=== PATIENT | male | born 1940 | race Caucasian/White ===

== ENCOUNTER → 2023-11-14 | Day surgery (SDC) | payer OTHER ==
[~2023-11-14] MED LIST: BENADRYL25 M1 PO; FENTANYL CITRATE/PF 100MCG/2 ML INJ ONE; FINASTERIDE5 MG PO; FLOMAX0.4 MG PO; IOPAMIDOL 610MG/1ML 300 MG/ML VIAL IV ONE; LASIX40 MG PO; LIDOCAINE HCL 2% LOCAL INJ 5 ML SDV VIAL INJ ONE; METOPROLOL SUCC50 MG PO; ONDANSETRON HCL INJ 2MG/ML 2ML 2 MG/ML VIAL ONE; PANTOPRAZOLE SO40 MG PO; PROPOFOL IV EMULSION 10 MG/ML 20 ML VIAL ONE; SEVOFLURANE INHAL SOLN 250 ML PEN BTL ONE; ULTRAM 50MG50 MG PO; VIAGRA50 MG PO; VITAMIN D31250 MCG PEG
[2023-11-14] MEDS: LACTATED RINGER'S 1,000 ML ONE (09:04)
[2023-11-14] MEDS: GENTAMICIN 80MG/NS 100 ML 200 ML IV ONE (09:04)
[2023-11-14] MEDS: PIPERACILLIN/TAZOBACTAM 3.375 GM VIAL ONE (09:04)
[2023-11-14 09:24] LABS: BASOPHILS # (AUTO) 0.1 (0.0-0.1); BASOPHILS % 0.9 % (0.0-1.0); EOSINOPHILS # (AUTO) 0.1 (0.0-0.4); EOSINOPHILS % 1.7 % (0.0-6.0); HEMATOCRIT 32.4 % (38.2-49.6); HEMOGLOBIN 10.8 g/dL (14.0-18.0); LYMPHOCYTES # (AUTO) 1.9 (1.0-3.2); LYMPHOCYTES % 31.8 % (18.0-39.1); MEAN CORPUSCULAR HEMOGLOBIN 30.6 pg (28-32); MEAN CORPUSCULAR HGB CONC 33.3 g/dL (31-35); MEAN CORPUSCULAR VOLUME 91.8 fL (81-99); MONOCYTES # (AUTO) 0.5 (0.2-0.8); MONOCYTES % 8.8 % (4.4-11.3); NEUTROPHILS # (AUTO) 3.3 (2.1-6.9); NEUTROPHILS % 56.5 % (38.7-80.0); PLATELET COUNT 184 x10e3/uL (140-360); RED BLOOD COUNT 3.53 x10e6/uL (4.3-5.7); RED CELL DISTRIBUTION WIDTH 13.4 % (11.7-14.4); WHITE BLOOD COUNT 5.82 x10e3/uL (4.8-10.8)
[2023-11-14 09:59] LABS: ANION GAP 15.1 mmol/L (8-16); CALCIUM 8.7 mg/dL (8.4-10.2); CREATININE, SERUM 1.73 mg/dL (0.72-1.25); POTASSIUM 4.1 mmol/L (3.5-5.1)
[2023-11-14] MEDS: PHENAZOPYRIDINE HCL 100 MG TAB ONE (12:55)
[2023-11-14 13:35] VITALS: BP 156/78; PULSE 80; RESP 16; O2SAT 97
== END | disposition home or self-care (01) ==
LOC: OR 08:18
PROVIDERS: ATTEND Urology
DX: C66.1 Malignant neoplasm of right ureter (principal); C65.1 Malignant neoplasm of right renal pelvis; C67.9 Malignant neoplasm of bladder, unspecified; N39.0 Urinary tract infection, site not specified; N20.0 Calculus of kidney; N13.30 Unspecified hydronephrosis; N40.1 Benign prostatic hyperplasia with lower urinary tract symptoms; N13.8 Other obstructive and reflux uropathy; R39.14 Feeling of incomplete bladder emptying; R39.16 Straining to void; R39.15 Urgency of urination; R39.12 Poor urinary stream; R35.0 Frequency of micturition; Z46.6 Encounter for fitting and adjustment of urinary device; N47.1 Phimosis; I25.2 Old myocardial infarction; I11.0 Hypertensive heart disease with heart failure; I50.9 Heart failure, unspecified; Z79.899 Other long term (current) drug therapy
CPT/HCPCS: 36415; 52332; 52354; 74420; 80048; 84550; 85025; 87086; 88112; 88305; 93005; C1758; C1769; C2617; J1580; J2001; J2405; J2543; J2704; J3010; J7121; Q9967

== ENCOUNTER 2024-01-26 09:50 | Inpatient (IN) | payer OTHER ==
[2024-01-26] VITALS (20 sets, daily range): BP systolic 106–144; BP diastolic 56–94; PULSE 66–85; RESP 15–25; TEMP 97.3–97.5; O2SAT 99–100
[~2024-01-26] VITALS: Ht 175.3 cm; Wt 83.0 kg
[~2024-01-26 09:50] MED LIST changes: -FENTANYL CITRATE/PF 100MCG/2 ML INJ ONE; -IOPAMIDOL 610MG/1ML 300 MG/ML VIAL IV ONE; -LIDOCAINE HCL 2% LOCAL INJ 5 ML SDV VIAL INJ ONE; -ONDANSETRON HCL INJ 2MG/ML 2ML 2 MG/ML VIAL ONE; -PROPOFOL IV EMULSION 10 MG/ML 20 ML VIAL ONE; -SEVOFLURANE INHAL SOLN 250 ML PEN BTL ONE
[2024-01-26 11:10] LABS: BASOPHILS % 0.4 % (0.0-1.0); EOSINOPHILS % 0.7 % (0.0-6.0); HEMATOCRIT 35.4 % (38.2-49.6); HEMOGLOBIN 11.3 g/dL (14.0-18.0); LYMPHOCYTES # (AUTO) 1.7 (1.0-3.2); LYMPHOCYTES % 31.1 % (18.0-39.1); MEAN CORPUSCULAR HGB CONC 31.9 g/dL (31-35); MONOCYTES # (AUTO) 0.5 (0.2-0.8); MONOCYTES % 9.1 % (4.4-11.3); NEUTROPHILS # (AUTO) 3.1 (2.1-6.9); NEUTROPHILS % 58.3 % (38.7-80.0); PLATELET COUNT 126 x10e3/uL (140-360); RED BLOOD COUNT 3.65 x10e6/uL (4.3-5.7); RED CELL DISTRIBUTION WIDTH 13.4 % (11.7-14.4); WHITE BLOOD COUNT 5.37 x10e3/uL (4.8-10.8)
[2024-01-26] MEDS: CEFAZOLIN SODIUM 2 GM ONE (11:10)
[2024-01-26] MEDS: LACTATED RINGER'S 1,000 ML ONE (11:10)
[2024-01-26 11:35] LABS: ALBUMIN 3.7 g/dL (3.5-5.0); ALBUMIN/GLOBULIN RATIO 0.9 (0.8-2.0); BILIRUBIN,TOTAL 0.5 mg/dL (0.2-1.2); CALCIUM 8.7 mg/dL (8.4-10.2); CREATININE, SERUM 1.72 mg/dL (0.72-1.25); TOTAL PROTEIN 7.8 g/dL (6.5-8.1)
[2024-01-26 11:49] LABS: ANION GAP 16.1 mmol/L (8-16)
[2024-01-26] MEDS ORDERED: GENTAMICIN SULFATE 40 MG/ML 2 ML VIAL ONE (12:07)
[2024-01-26] MEDS ORDERED: MANNITOL 25% 12.5GM/50ML 0 ML ONE (12:07)
[2024-01-26] MEDS ORDERED: VECURONIUM BROMIDE FOR INJ 20 MG VIAL ONE (12:44)
[2024-01-26] MEDS ORDERED: ROCURONIUM BROMIDE 10 MG/ML 5ML VIAL IV ONE (12:44)
[2024-01-26] MEDS ORDERED: WATER STERILE 10 ML VIAL ONE (12:44)
[2024-01-26] MEDS ORDERED: FAMOTIDINE 20 MG/2 ML VIAL IV ONE (12:44)
[2024-01-26] MEDS ORDERED: SEVOFLURANE INHAL SOLN 250 ML PEN BTL ONE (12:44)
[2024-01-26] MEDS ORDERED: ACETAMINOPHEN 1000 MG/100 ML IV ONE (12:44)
[2024-01-26] MEDS ORDERED: METOCLOPRAMIDE HCL 10 MG/2ML VIAL ONE (12:44)
[2024-01-26] MEDS ORDERED: DEXAMETHASONE SOD PHOS INJ 4 MG/ML SDV ONE (12:44)
[2024-01-26] MEDS ORDERED: LIDOCAINE HCL 2% LOCAL INJ 5 ML SDV VIAL INJ ONE (12:44)
[2024-01-26] MEDS ORDERED: ETOMIDATE 2 MG/ML 10 ML INJ IV ONE (12:44)
[2024-01-26] MEDS ORDERED: SUCCINYLCHOLINE CHLORIDE 20 MG/ML 10ML VIAL ONE (12:44)
[2024-01-26] MEDS ORDERED: ONDANSETRON HCL INJ 2MG/ML 2ML 2 MG/ML VIAL ONE (12:44)
[2024-01-26] MEDS ORDERED: MORPHINE SULFATE/PF 1 MG/1 ML 10ML VIAL ONE (13:21)
[2024-01-26] MEDS ORDERED: FENTANYL CITRATE/PF 100MCG/2 ML INJ ONE (14:21)
[2024-01-26] MEDS ORDERED: ACETAMINOPHEN 1000 MG/100 ML IV PRN (17:30)
[2024-01-26] MEDS ORDERED: NALOXONE HCL INJ 0.4 MG/ML AMP IV PRN (17:30)
[2024-01-26] MEDS ORDERED: ONDANSETRON HCL INJ 2MG/ML 2ML 2 MG/ML VIAL IV PRN (17:30)
[2024-01-26] MEDS ORDERED: SUGAMMADEX SODIUM 200 MG/2 ML VIAL IV ONE (17:39)
[2024-01-26] MEDS: MORPHINE SULFATE 1 MG/ML 30ML PCA IV PRN (17:42)
[2024-01-26 18:24] LABS: BASOPHILS % 0.3 % (0.0-1.0); EOSINOPHILS % 0.1 % (0.0-6.0); HEMATOCRIT 31.8 % (38.2-49.6); HEMOGLOBIN 10.3 g/dL (14.0-18.0); LYMPHOCYTES # (AUTO) 2.2 (1.0-3.2); LYMPHOCYTES % 25.5 % (18.0-39.1); MEAN CORPUSCULAR HGB CONC 32.4 g/dL (31-35); MEAN CORPUSCULAR VOLUME 95.8 fL (81-99); MONOCYTES # (AUTO) 0.3 (0.2-0.8); MONOCYTES % 3.1 % (4.4-11.3); NEUTROPHILS # (AUTO) 6.1 (2.1-6.9); NEUTROPHILS % 70.8 % (38.7-80.0); PLATELET COUNT 111 x10e3/uL (140-360); RED BLOOD COUNT 3.32 x10e6/uL (4.3-5.7); RED CELL DISTRIBUTION WIDTH 13.4 % (11.7-14.4); WHITE BLOOD COUNT 8.58 x10e3/uL (4.8-10.8)
[2024-01-26 18:40] LABS: ANION GAP 16.7 mmol/L (8-16); CREATININE, SERUM 1.44 mg/dL (0.72-1.25); POTASSIUM 3.7 mmol/L (3.5-5.1)
[2024-01-26] MEDS: SODIUM CHLORIDE 0.9% 1000ML 1,000 ML IV SCH (20:21)
[2024-01-26] MEDS: MUPIROCIN 2% OINT 22 GM TUBE TOP SCH (21:43)
[2024-01-27] VITALS (57 sets, daily range): BP systolic 71–149; BP diastolic 35–113; PULSE 57–110; RESP 15–27; TEMP 98.2–101; O2SAT 82–100
[2024-01-27] MEDS: SODIUM CHLORIDE 0.9% 250ML IRRIG IR SCH (00:37)
[2024-01-27 06:13] LABS: BASOPHILS # (AUTO) 0.1 (0.0-0.1); BASOPHILS % 0.6 % (0.0-1.0); HEMATOCRIT 26.9 % (38.2-49.6); HEMOGLOBIN 8.4 g/dL (14.0-18.0); LYMPHOCYTES # (AUTO) 1.1 (1.0-3.2); LYMPHOCYTES % 12.8 % (18.0-39.1); MEAN CORPUSCULAR HEMOGLOBIN 31.3 pg (28-32); MEAN CORPUSCULAR HGB CONC 31.2 g/dL (31-35); MEAN CORPUSCULAR VOLUME 100.4 fL (81-99); MONOCYTES # (AUTO) 0.7 (0.2-0.8); MONOCYTES % 8.2 % (4.4-11.3); NEUTROPHILS # (AUTO) 6.6 (2.1-6.9); NEUTROPHILS % 78.2 % (38.7-80.0); PLATELET COUNT 73 x10e3/uL (140-360); RED BLOOD COUNT 2.68 x10e6/uL (4.3-5.7); RED CELL DISTRIBUTION WIDTH 13.5 % (11.7-14.4); WHITE BLOOD COUNT 8.38 x10e3/uL (4.8-10.8)
[2024-01-27 06:48] LABS: ANION GAP 15.4 mmol/L (8-16); CALCIUM 8.1 mg/dL (8.4-10.2); CREATININE, SERUM 1.75 mg/dL (0.72-1.25); POTASSIUM 4.4 mmol/L (3.5-5.1)
[2024-01-27] MEDS ORDERED: ONDANSETRON HCL INJ 2MG/ML 2ML 2 MG/ML VIAL IV PRN (08:45)
[2024-01-27] MEDS: HETASTARCH 6%/NACL INJ 500 ML IV ONE (17:55)
[2024-01-27] MEDS: ALBUMIN 25% 25GM 100ML 0.25 GM/ML BTL IV ONE (20:52)
[2024-01-27] MEDS: NOREPINEPHRINE 8 MG/D5W 250 ML 250 ML IV SCH (22:00)
[2024-01-27] MEDS: ALBUMIN 25% 25GM 100ML 0.25 GM/ML BTL IV STA (22:02)
[2024-01-27 22:20] LABS: BASOPHILS # (AUTO) 0.1 (0.0-0.1); BASOPHILS % 0.4 % (0.0-1.0); EOSINOPHILS # (AUTO) 0.1 (0.0-0.4); EOSINOPHILS % 0.8 % (0.0-6.0); LYMPHOCYTES # (AUTO) 1.6 (1.0-3.2); LYMPHOCYTES % 12.3 % (18.0-39.1); MEAN CORPUSCULAR HEMOGLOBIN 31.9 pg (28-32); MEAN CORPUSCULAR HGB CONC 32.2 g/dL (31-35); MEAN CORPUSCULAR VOLUME 99.1 fL (81-99); MONOCYTES # (AUTO) 1.2 (0.2-0.8); MONOCYTES % 9.7 % (4.4-11.3); NEUTROPHILS # (AUTO) 9.7 (2.1-6.9); NEUTROPHILS % 76.2 % (38.7-80.0); PLATELET COUNT 122 x10e3/uL (140-360); RED BLOOD COUNT 2.16 x10e6/uL (4.3-5.7); RED CELL DISTRIBUTION WIDTH 13.9 % (11.7-14.4)
[2024-01-27 22:24] LABS: WHITE BLOOD COUNT 12.72 x10e3/uL (4.8-10.8)
[2024-01-27 22:25] LABS: HEMATOCRIT 21.4 % (38.2-49.6); HEMOGLOBIN 6.9 g/dL (14.0-18.0)
[2024-01-27] MEDS: SODIUM CHLORIDE 0.9% 250ML 250 ML IV ONE (23:32)
[2024-01-28] VITALS (90 sets, daily range): BP systolic 64–157; BP diastolic 34–101; PULSE 52–130; RESP 12–29; TEMP 97.3–98.6; O2SAT 81–100
[2024-01-28] MEDS: FUROSEMIDE INJ 10 MG/ML 2 ML VIAL IV PRN ×2 (02:30→19:01)
[2024-01-28] MEDS: ACETAMINOPHEN 1000 MG/100 ML IV PRN (05:57)
[2024-01-28] MEDS: HETASTARCH 6%/NACL INJ 500 ML IV ONE (06:00)
[2024-01-28] MEDS: HETASTARCH 6%/NACL INJ 500 ML IV STA (06:22)
[2024-01-28 07:51] LABS: BASOPHILS % 0.2 % (0.0-1.0); EOSINOPHILS # (AUTO) 0.2 (0.0-0.4); EOSINOPHILS % 1.6 % (0.0-6.0); HEMATOCRIT 22.4 % (38.2-49.6); HEMOGLOBIN 7.3 g/dL (14.0-18.0); LYMPHOCYTES # (AUTO) 1.1 (1.0-3.2); LYMPHOCYTES % 11.4 % (18.0-39.1); MEAN CORPUSCULAR HEMOGLOBIN 30.8 pg (28-32); MEAN CORPUSCULAR HGB CONC 32.6 g/dL (31-35); MONOCYTES # (AUTO) 0.8 (0.2-0.8); MONOCYTES % 8.2 % (4.4-11.3); NEUTROPHILS # (AUTO) 7.3 (2.1-6.9); NEUTROPHILS % 77.4 % (38.7-80.0); PLATELET COUNT 107 x10e3/uL (140-360); RED BLOOD COUNT 2.37 x10e6/uL (4.3-5.7); RED CELL DISTRIBUTION WIDTH 15.6 % (11.7-14.4)
[2024-01-28 07:53] LABS: MEAN CORPUSCULAR VOLUME 94.5 fL (81-99)
[2024-01-28 08:18] LABS: ANION GAP 13.1 mmol/L (8-16); CALCIUM 7.3 mg/dL (8.4-10.2); CREATININE, SERUM 2.73 mg/dL (0.72-1.25); POTASSIUM 4.1 mmol/L (3.5-5.1)
[2024-01-28] MEDS: ALBUMIN 25% 25GM 100ML 0.25 GM/ML BTL IV SCH (11:39)
[2024-01-28] MEDS: SODIUM BICARBONATE 8.4% VIAL 150 ML in DEXTROSE 5% 1,000 ML IV SCH (11:39)
[2024-01-28 12:58] LABS: BILIRUBIN,URINE MODERATE (NEGATIVE); CLARITY,URINE CLOUDY (CLEAR); COLOR,URINE YELLOW (YELLOW); GLUCOSE, URINE NEGATIVE (NEGATIVE); KETONES,URINE 1+ (NEGATIVE); LEUKOCYTE ESTERASE ,URINE TRACE (NEGATIVE); NITRITE,URINE POSITIVE (NEGATIVE); PH,URINE 5.5 (5 - 7); PROTEIN,URINE DIPSTICK >=300 (NEGATIVE); URINE UROBILINOGEN 1 mg/dL (0.2 - 1)
[2024-01-28 12:59] LABS: BACTERIA,URINE MODERATE /HPF; EPITHELIAL CELLS,URINE FEW /LPF; RBC,URINE >50 /HPF (0-5); WBC,URINE (MAN) >50 /HPF (0-5)
[2024-01-28 13:43] LABS: CREATININE,URINE RANDOM 140.75 mg/dL (63-166); SODIUM,URINE 70 mmol/L
[2024-01-28] MEDS: SODIUM CHLORIDE 0.9% 250ML 250 ML IV ONE (17:57)
[2024-01-29] VITALS (90 sets, daily range): BP systolic 80–143; BP diastolic 30–125; PULSE 67–143; RESP 14–29; TEMP 97.6–98.6; O2SAT 79–100
[2024-01-29 00:53] LABS: BASOPHILS % 0.3 % (0.0-1.0); EOSINOPHILS # (AUTO) 0.2 (0.0-0.4); EOSINOPHILS % 2.1 % (0.0-6.0); HEMATOCRIT 28.2 % (38.2-49.6); HEMOGLOBIN 9.4 g/dL (14.0-18.0); LYMPHOCYTES # (AUTO) 1.4 (1.0-3.2); LYMPHOCYTES % 12.1 % (18.0-39.1); MEAN CORPUSCULAR HEMOGLOBIN 30.8 pg (28-32); MEAN CORPUSCULAR HGB CONC 33.3 g/dL (31-35); MEAN CORPUSCULAR VOLUME 92.5 fL (81-99); MONOCYTES # (AUTO) 0.7 (0.2-0.8); MONOCYTES % 5.9 % (4.4-11.3); NEUTROPHILS % 78.7 % (38.7-80.0); PLATELET COUNT 110 x10e3/uL (140-360); RED BLOOD COUNT 3.05 x10e6/uL (4.3-5.7); RED CELL DISTRIBUTION WIDTH 16.7 % (11.7-14.4); WHITE BLOOD COUNT 11.37 x10e3/uL (4.8-10.8)
[2024-01-29 01:12] LABS: ALBUMIN 3.1 g/dL (3.5-5.0); ALBUMIN/GLOBULIN RATIO 1.3 (0.8-2.0); ALKALINE PHOSPHATASE 61 IU/L (40-150); ANION GAP 15.9 mmol/L (8-16); BILIRUBIN,TOTAL 1.4 mg/dL (0.2-1.2); BLOOD UREA NITROGEN 39 mg/dL (7-26); BUN/CREATININE RATIO 13 (6-25); CALCIUM 7.3 mg/dL (8.4-10.2); CARBON DIOXIDE 18 mmol/L (22-29); CHLORIDE 110 mmol/L (98-107); CREATININE, SERUM 2.89 mg/dL (0.72-1.25); EST GLOMERULAR FILTRATION RATE 21 ML/MIN (>=60); GLUCOSE 113 mg/dL (74-118); MAGNESIUM 1.5 MG/DL (1.3-2.1); POTASSIUM 3.9 mmol/L (3.5-5.1); SODIUM 140 mmol/L (136-145); TOTAL PROTEIN 5.4 g/dL (6.5-8.1)
[2024-01-29 01:13] LABS: ALANINE AMINOTRANSFERASE < 6 IU/L (0-55)
[2024-01-29] MEDS: FUROSEMIDE INJ 10 MG/ML 4 ML VIAL IV ONE ×2 (02:00→08:01)
[2024-01-29] MEDS: DEXMEDETOMIDINE 400MCG/NS100ML 100 ML IV PRN (02:20)
[2024-01-29] MEDS: SODIUM BICARBONATE 8.4% VIAL 150 ML in DEXTROSE 5% 1,000 ML IV SCH (02:41)
[2024-01-29] MEDS ORDERED: DEXTROSE 5% 1,000 ML IV ONE (02:41)
[2024-01-29 03:14] LABS: ABG HCO3 23 mmol/L (22-26); ABG PCO2 48 mmHg (35-45); ABG PH 7.28 (7.35-7.45); ABG PO2 243 mmHg (80-105)
[2024-01-29 03:15] LABS: ABG TCO2 24
[2024-01-29] MEDS: SODIUM BICARBONATE 8.4% SYRING 150 ML ONE (03:25)
[2024-01-29] MEDS: MAGNESIUM SULFATE 2GM/50ML 50 ML IV ONE (03:59)
[2024-01-29 06:19] LABS: BASOPHILS % 0.1 % (0.0-1.0); EOSINOPHILS # (AUTO) 0.1 (0.0-0.4); EOSINOPHILS % 1.3 % (0.0-6.0); HEMATOCRIT 30.8 % (38.2-49.6); HEMOGLOBIN 9.7 g/dL (14.0-18.0); LYMPHOCYTES # (AUTO) 0.8 (1.0-3.2); LYMPHOCYTES % 10.3 % (18.0-39.1); MEAN CORPUSCULAR HEMOGLOBIN 29.8 pg (28-32); MEAN CORPUSCULAR HGB CONC 31.5 g/dL (31-35); MEAN CORPUSCULAR VOLUME 94.5 fL (81-99); MONOCYTES # (AUTO) 0.4 (0.2-0.8); MONOCYTES % 4.9 % (4.4-11.3); NEUTROPHILS # (AUTO) 6.1 (2.1-6.9); NEUTROPHILS % 82.2 % (38.7-80.0); PLATELET COUNT 109 x10e3/uL (140-360); RED BLOOD COUNT 3.26 x10e6/uL (4.3-5.7); RED CELL DISTRIBUTION WIDTH 16.7 % (11.7-14.4); WHITE BLOOD COUNT 7.41 x10e3/uL (4.8-10.8)
[2024-01-29 06:56] LABS: ANION GAP 14.6 mmol/L (8-16); CALCIUM 7.7 mg/dL (8.4-10.2); CREATININE, SERUM 2.84 mg/dL (0.72-1.25); POTASSIUM 3.6 mmol/L (3.5-5.1)
[2024-01-29 07:04] LABS: ABG HCO3 24 mmol/L (22-26); ABG PCO2 47 mmHg (35-45); ABG PH 7.31 (7.35-7.45); ABG PO2 186 mmHg (80-105); ABG TCO2 25
[2024-01-29] MEDS: FUROSEMIDE INJ 100 MG in SODIUM CHLORIDE 0.9% 90 ML IV SCH (08:06)
[2024-01-30] VITALS (70 sets, daily range): BP systolic 89–175; BP diastolic 46–95; PULSE 64–128; RESP 14–32; TEMP 97.5–98.4; O2SAT 96–100
[2024-01-30 06:23] LABS: BASOPHILS % 0.3 % (0.0-1.0); EOSINOPHILS # (AUTO) 0.3 (0.0-0.4); EOSINOPHILS % 2.5 % (0.0-6.0); HEMATOCRIT 30.3 % (38.2-49.6); HEMOGLOBIN 9.6 g/dL (14.0-18.0); LYMPHOCYTES # (AUTO) 1.1 (1.0-3.2); LYMPHOCYTES % 10.8 % (18.0-39.1); MEAN CORPUSCULAR HGB CONC 31.7 g/dL (31-35); MEAN CORPUSCULAR VOLUME 94.7 fL (81-99); MONOCYTES # (AUTO) 0.6 (0.2-0.8); MONOCYTES % 6.1 % (4.4-11.3); NEUTROPHILS % 79.9 % (38.7-80.0); PLATELET COUNT 131 x10e3/uL (140-360); RED CELL DISTRIBUTION WIDTH 16.3 % (11.7-14.4); WHITE BLOOD COUNT 9.98 x10e3/uL (4.8-10.8)
[2024-01-30 06:41] LABS: ANION GAP 17.3 mmol/L (8-16); CALCIUM 8.2 mg/dL (8.4-10.2); CREATININE, SERUM 2.87 mg/dL (0.72-1.25)
[2024-01-30 06:52] LABS: POTASSIUM 3.3 mmol/L (3.5-5.1)
[2024-01-30] MEDS: METOCLOPRAMIDE HCL 10 MG/2ML VIAL IV SCH (10:16)
[2024-01-30] MEDS: POTASSIUM CHLORIDE 20MEQ/100ML 100 ML IV ONE (10:16)
[2024-01-30] MEDS: FUROSEMIDE INJ 10 MG/ML 4 ML VIAL IV ONE (10:16)
[2024-01-30] MEDS: FUROSEMIDE INJ 100 MG in SODIUM CHLORIDE 0.9% 90 ML IV SCH (14:53)
[2024-01-30] MEDS: BUMETANIDE 10 MG in SODIUM CHLORIDE 0.9% 60 ML IV SCH (15:42)
[2024-01-30] MEDS ORDERED: ALBUMIN 25% 25GM 100ML 0.25 GM/ML BTL IV SCH (17:45)
[2024-01-30] MEDS: ALBUMIN 25% 25GM 100ML 100 ML IV SCH (17:51)
[2024-01-30] MEDS: BISACODYL 10 MG SUPP PR ONE (19:55)
[2024-01-31] VITALS (53 sets, daily range): BP systolic 98–131; BP diastolic 46–67; PULSE 63–89; RESP 15–37; TEMP 97.5–98.9; O2SAT 79–100
[2024-01-31 06:02] LABS: BASOPHILS % 0.2 % (0.0-1.0); EOSINOPHILS # (AUTO) 0.2 (0.0-0.4); EOSINOPHILS % 2.3 % (0.0-6.0); HEMATOCRIT 28.3 % (38.2-49.6); HEMOGLOBIN 8.7 g/dL (14.0-18.0); LYMPHOCYTES # (AUTO) 0.7 (1.0-3.2); LYMPHOCYTES % 8.9 % (18.0-39.1); MEAN CORPUSCULAR HGB CONC 30.7 g/dL (31-35); MEAN CORPUSCULAR VOLUME 97.6 fL (81-99); MONOCYTES # (AUTO) 0.6 (0.2-0.8); MONOCYTES % 6.9 % (4.4-11.3); NEUTROPHILS # (AUTO) 6.7 (2.1-6.9); NEUTROPHILS % 80.6 % (38.7-80.0); PLATELET COUNT 113 x10e3/uL (140-360); RED CELL DISTRIBUTION WIDTH 16.2 % (11.7-14.4); WHITE BLOOD COUNT 8.28 x10e3/uL (4.8-10.8)
[2024-01-31 07:40] LABS: ALBUMIN 3.1 g/dL (3.5-5.0); ALBUMIN/GLOBULIN RATIO 1.1 (0.8-2.0); ALKALINE PHOSPHATASE 61 IU/L (40-150); ANION GAP 21.1 mmol/L (8-16); BILIRUBIN,TOTAL 1.5 mg/dL (0.2-1.2); BLOOD UREA NITROGEN 53 mg/dL (7-26); BUN/CREATININE RATIO 20 (6-25); CALCIUM 8.3 mg/dL (8.4-10.2); CARBON DIOXIDE 17 mmol/L (22-29); CHLORIDE 112 mmol/L (98-107); CREATININE, SERUM 2.69 mg/dL (0.72-1.25); EST GLOMERULAR FILTRATION RATE 23 ML/MIN (>=60); GLUCOSE 80 mg/dL (74-118); SODIUM 147 mmol/L (136-145)
[2024-01-31 07:41] LABS: ALANINE AMINOTRANSFERASE < 6 IU/L (0-55)
[2024-01-31 07:42] LABS: POTASSIUM 3.1 mmol/L (3.5-5.1)
[2024-01-31] MEDS: POTASSIUM CHLORIDE 20MEQ/100ML 100 ML IV ONE (09:23)
[2024-01-31] MEDS: BISACODYL 10 MG SUPP PR ONE (10:22)
[2024-01-31] MEDS: DIPHENHYDRAMINE HCL INJ 50 MG/ML VIAL IM PRN (12:16)
[2024-02-01] VITALS (29 sets, daily range): BP systolic 98–140; BP diastolic 48–75; PULSE 46–117; RESP 17–30; TEMP 97.9–102; O2SAT 87–100
[2024-02-01 07:02] LABS: ALBUMIN 2.8 g/dL (3.5-5.0); ALKALINE PHOSPHATASE 68 IU/L (40-150); ANION GAP 20.2 mmol/L (8-16); BILIRUBIN,TOTAL 1.4 mg/dL (0.2-1.2); BLOOD UREA NITROGEN 62 mg/dL (7-26); BUN/CREATININE RATIO 23 (6-25); CARBON DIOXIDE 20 mmol/L (22-29); CHLORIDE 114 mmol/L (98-107); CREATININE, SERUM 2.74 mg/dL (0.72-1.25); EST GLOMERULAR FILTRATION RATE 23 ML/MIN (>=60); GLUCOSE 76 mg/dL (74-118); SODIUM 151 mmol/L (136-145); TOTAL PROTEIN 5.7 g/dL (6.5-8.1)
[2024-02-01 07:08] LABS: ALANINE AMINOTRANSFERASE < 6 IU/L (0-55); POTASSIUM 3.2 mmol/L (3.5-5.1)
[2024-02-01] MEDS: POTASSIUM CHLORIDE IN D5W 1,000 ML IV ONE (11:31)
[2024-02-01] MEDS: POTASSIUM CHL 40 MEQ in DEXTROSE 5% 1,000 ML IV SCH (16:41)
[2024-02-01] MEDS: Morphine 4mg INJECTION 4 MG/ML INJ IV PRN (19:39)
[2024-02-02] VITALS (19 sets, daily range): BP systolic 110–131; BP diastolic 53–78; PULSE 85–108; RESP 14–22; TEMP 97–98.9; O2SAT 95–100
[2024-02-02 06:44] LABS: BASOPHILS % 0.1 % (0.0-1.0); EOSINOPHILS # (AUTO) 0.3 (0.0-0.4); EOSINOPHILS % 3.8 % (0.0-6.0); HEMATOCRIT 29.2 % (38.2-49.6); HEMOGLOBIN 9.5 g/dL (14.0-18.0); LYMPHOCYTES # (AUTO) 1.4 (1.0-3.2); MEAN CORPUSCULAR HEMOGLOBIN 30.5 pg (28-32); MEAN CORPUSCULAR HGB CONC 32.5 g/dL (31-35); MEAN CORPUSCULAR VOLUME 93.9 fL (81-99); MONOCYTES # (AUTO) 0.7 (0.2-0.8); MONOCYTES % 8.1 % (4.4-11.3); NEUTROPHILS # (AUTO) 5.9 (2.1-6.9); NEUTROPHILS % 69.2 % (38.7-80.0); PLATELET COUNT 98 x10e3/uL (140-360); RED BLOOD COUNT 3.11 x10e6/uL (4.3-5.7); RED CELL DISTRIBUTION WIDTH 18.2 % (11.7-14.4); WHITE BLOOD COUNT 8.49 x10e3/uL (4.8-10.8)
[2024-02-02 07:15] LABS: ANION GAP 14.4 mmol/L (8-16); CALCIUM 8.6 mg/dL (8.4-10.2); CREATININE, SERUM 2.69 mg/dL (0.72-1.25)
[2024-02-02 07:18] LABS: POTASSIUM 3.4 mmol/L (3.5-5.1)
[2024-02-02 08:04] LABS: MAGNESIUM 1.8 MG/DL (1.3-2.1); PHOSPHORUS 1.9 MG/DL (2.3-4.7)
[2024-02-02] MEDS: POTASSIUM CHL 40 MEQ in DEXTROSE 5% 1,000 ML IV SCH ×2 (10:51→17:06)
[2024-02-02] MEDS: FUROSEMIDE INJ 10 MG/ML 2 ML VIAL IV SCH (14:27)
[2024-02-02] MEDS ORDERED: POTASSIUM CHLORIDE 40 MEQ in DEXTROSE 5% 1,000 ML IV SCH (16:15)
[2024-02-02] MEDS: SENNA-S TABLET PO SCH (17:09)
[2024-02-03] VITALS (36 sets, daily range): BP systolic 117–143; BP diastolic 52–103; PULSE 80–108; RESP 14–22; TEMP 98–98.7; O2SAT 94–100
[2024-02-03 05:05] LABS: ALBUMIN 2.5 g/dL (3.5-5.0); ALBUMIN/GLOBULIN RATIO 0.7 (0.8-2.0); ALKALINE PHOSPHATASE 71 IU/L (40-150); ANION GAP 16.3 mmol/L (8-16); BILIRUBIN,TOTAL 1.5 mg/dL (0.2-1.2); BLOOD UREA NITROGEN 56 mg/dL (7-26); BUN/CREATININE RATIO 27 (6-25); CALCIUM 8.1 mg/dL (8.4-10.2); CARBON DIOXIDE 20 mmol/L (22-29); CHLORIDE 110 mmol/L (98-107); CREATININE, SERUM 2.07 mg/dL (0.72-1.25); EST GLOMERULAR FILTRATION RATE 32 ML/MIN (>=60); GLUCOSE 339 mg/dL (74-118); MAGNESIUM 1.7 MG/DL (1.3-2.1); SODIUM 141 mmol/L (136-145); URIC ACID 11.5 mg/dL (4.8-8.0)
[2024-02-03 05:16] LABS: ALANINE AMINOTRANSFERASE < 6 IU/L (0-55)
[2024-02-03 05:19] LABS: POTASSIUM 5.3 mmol/L (3.5-5.1)
[2024-02-03] MEDS: CALCIUM GLUC 1 G/50 ML NACL 50 ML IV ONE (17:40)
[2024-02-03] MEDS: SODIUM BICARBONATE 650 MG TAB PO SCH (17:40)
[2024-02-04] VITALS (14 sets, daily range): BP systolic 112–151; BP diastolic 52–84; PULSE 80–101; RESP 17–19; TEMP 97.3–98.3; O2SAT 89–100
[2024-02-04 06:14] LABS: BASOPHILS % 0.2 % (0.0-1.0); EOSINOPHILS # (AUTO) 0.4 (0.0-0.4); EOSINOPHILS % 2.9 % (0.0-6.0); HEMATOCRIT 31.5 % (38.2-49.6); HEMOGLOBIN 9.5 g/dL (14.0-18.0); LYMPHOCYTES # (AUTO) 1.4 (1.0-3.2); LYMPHOCYTES % 11.5 % (18.0-39.1); MEAN CORPUSCULAR HEMOGLOBIN 29.4 pg (28-32); MEAN CORPUSCULAR HGB CONC 30.2 g/dL (31-35); MEAN CORPUSCULAR VOLUME 97.5 fL (81-99); MONOCYTES # (AUTO) 0.5 (0.2-0.8); NEUTROPHILS % 80.4 % (38.7-80.0); PLATELET COUNT 197 x10e3/uL (140-360); RED BLOOD COUNT 3.23 x10e6/uL (4.3-5.7); RED CELL DISTRIBUTION WIDTH 16.5 % (11.7-14.4); WHITE BLOOD COUNT 12.46 x10e3/uL (4.8-10.8)
[2024-02-04 07:00] LABS: ALBUMIN 2.6 g/dL (3.5-5.0); ALBUMIN/GLOBULIN RATIO 0.7 (0.8-2.0); ALKALINE PHOSPHATASE 130 IU/L (40-150); ANION GAP 15.9 mmol/L (8-16); BILIRUBIN,TOTAL 1.9 mg/dL (0.2-1.2); BLOOD UREA NITROGEN 55 mg/dL (7-26); BUN/CREATININE RATIO 29 (6-25); CALCIUM 8.6 mg/dL (8.4-10.2); CARBON DIOXIDE 26 mmol/L (22-29); CHLORIDE 112 mmol/L (98-107); CREATININE, SERUM 1.88 mg/dL (0.72-1.25); EST GLOMERULAR FILTRATION RATE 35 ML/MIN (>=60); GLUCOSE 101 mg/dL (74-118); SODIUM 151 mmol/L (136-145); TOTAL PROTEIN 6.2 g/dL (6.5-8.1)
[2024-02-04 07:25] LABS: ALANINE AMINOTRANSFERASE < 6 IU/L (0-55)
[2024-02-04 07:28] LABS: POTASSIUM 2.9 mmol/L (3.5-5.1)
[2024-02-04] MEDS: FUROSEMIDE INJ 10 MG/ML 4 ML VIAL IV SCH (10:30)
[2024-02-04] MEDS: POTASSIUM CHLORIDE 20MEQ/100ML 200 ML IV ONE (10:31)
[2024-02-04] MEDS: POLYETHYLENE GLYCOL 3350 17 GM PACK PO SCH (10:31)
[2024-02-04] MEDS: DOCUSATE SODIUM LIQD 100 MG/10 ML UDC NG SCH (10:31)
[2024-02-04] MEDS: HEPARIN SOD (PORCINE) 5,000 UNIT/ML VIAL SC SCH (20:41)
[2024-02-05] VITALS (10 sets, daily range): BP systolic 123–141; BP diastolic 53–72; PULSE 75–93; RESP 17–18; TEMP 97–98.3; O2SAT 93–98
[2024-02-05] MEDS: HYDROCODONE/APAP 7.5MG-325MG 1 EA TAB PO PRN (03:29)
[2024-02-05 05:43] LABS: BASOPHILS % 0.2 % (0.0-1.0); EOSINOPHILS # (AUTO) 0.3 (0.0-0.4); EOSINOPHILS % 2.2 % (0.0-6.0); HEMATOCRIT 30.2 % (38.2-49.6); HEMOGLOBIN 9.2 g/dL (14.0-18.0); LYMPHOCYTES # (AUTO) 1.6 (1.0-3.2); LYMPHOCYTES % 12.7 % (18.0-39.1); MEAN CORPUSCULAR HEMOGLOBIN 29.5 pg (28-32); MEAN CORPUSCULAR HGB CONC 30.5 g/dL (31-35); MEAN CORPUSCULAR VOLUME 96.8 fL (81-99); MONOCYTES # (AUTO) 0.6 (0.2-0.8); MONOCYTES % 4.3 % (4.4-11.3); NEUTROPHILS # (AUTO) 10.3 (2.1-6.9); NEUTROPHILS % 79.8 % (38.7-80.0); PLATELET COUNT 207 x10e3/uL (140-360); RED BLOOD COUNT 3.12 x10e6/uL (4.3-5.7); RED CELL DISTRIBUTION WIDTH 16.5 % (11.7-14.4); WHITE BLOOD COUNT 12.96 x10e3/uL (4.8-10.8)
[2024-02-05 06:45] LABS: CALCIUM 8.8 mg/dL (8.4-10.2); CREATININE, SERUM 1.63 mg/dL (0.72-1.25)
[2024-02-05] MEDS ORDERED: ONDANSETRON HCL 4 MG ORAL DISINTEGRATING TAB PO PRN (16:15)
[2024-02-05] MEDS: POTASSIUM CHLORIDE 20MEQ/100ML 100 ML IV SCH (18:53)
[2024-02-06] VITALS (8 sets, daily range): BP systolic 116–150; BP diastolic 44–69; PULSE 81–93; RESP 18–21; TEMP 97.7–98.2; O2SAT 94–99
[2024-02-06 07:47] LABS: ANION GAP 13.1 mmol/L (8-16); CALCIUM 8.4 mg/dL (8.4-10.2); CREATININE, SERUM 1.35 mg/dL (0.72-1.25)
[2024-02-06 07:49] LABS: POTASSIUM 3.1 mmol/L (3.5-5.1)
[2024-02-06] MEDS: POTASSIUM CHLORIDE 10MEQ EA PO ONE (09:18)
[2024-02-06] MEDS ORDERED: POTASSIUM CHLORIDE 20MEQ/100ML 100 ML IV SCH (18:30)
[2024-02-06] MEDS: POTASSIUM CHLORIDE 20MEQ/100ML 100 ML IV SCH (20:47)
[2024-02-07] VITALS (12 sets, daily range): BP systolic 122–132; BP diastolic 57–68; PULSE 74–90; RESP 17–20; TEMP 97.2–100.2; O2SAT 94–99
[2024-02-07] MEDS: FUROSEMIDE 40 MG TAB PO SCH ×2 (05:53→09:00)
[2024-02-07 08:47] LABS: ANION GAP 14.7 mmol/L (8-16); CALCIUM 8.5 mg/dL (8.4-10.2); CREATININE, SERUM 1.31 mg/dL (0.72-1.25); POTASSIUM 3.7 mmol/L (3.5-5.1)
[2024-02-07] MEDS: POTASSIUM CHLORIDE 20 MEQ TAB CR PO SCH (10:17)
[2024-02-08] VITALS (11 sets, daily range): BP systolic 113–134; BP diastolic 52–61; PULSE 83–100; RESP 16–21; TEMP 97.1–99.1; O2SAT 95–99
[2024-02-09] VITALS (12 sets, daily range): BP systolic 112–136; BP diastolic 50–62; PULSE 65–105; RESP 16–21; TEMP 97.6–100.3; O2SAT 93–98
[2024-02-09 08:04] LABS: BASOPHILS % 0.2 % (0.0-1.0); EOSINOPHILS # (AUTO) 0.2 (0.0-0.4); HEMATOCRIT 27.6 % (38.2-49.6); HEMOGLOBIN 8.7 g/dL (14.0-18.0); LYMPHOCYTES # (AUTO) 1.4 (1.0-3.2); LYMPHOCYTES % 13.8 % (18.0-39.1); MEAN CORPUSCULAR HEMOGLOBIN 30.3 pg (28-32); MEAN CORPUSCULAR HGB CONC 31.5 g/dL (31-35); MEAN CORPUSCULAR VOLUME 96.2 fL (81-99); MONOCYTES # (AUTO) 0.8 (0.2-0.8); MONOCYTES % 7.8 % (4.4-11.3); NEUTROPHILS # (AUTO) 7.6 (2.1-6.9); NEUTROPHILS % 75.4 % (38.7-80.0); PLATELET COUNT 243 x10e3/uL (140-360); RED BLOOD COUNT 2.87 x10e6/uL (4.3-5.7); RED CELL DISTRIBUTION WIDTH 16.8 % (11.7-14.4); WHITE BLOOD COUNT 10.07 x10e3/uL (4.8-10.8)
[2024-02-09 08:24] LABS: ANION GAP 13.3 mmol/L (8-16); CALCIUM 8.1 mg/dL (8.4-10.2); CREATININE, SERUM 1.4 mg/dL (0.72-1.25); POTASSIUM 3.3 mmol/L (3.5-5.1)
[2024-02-09] MEDS: BALSAM PERU/CASTOR OIL 60 GM OINT...G. TP SCH (14:50)
[2024-02-09] MEDS: Vancomycin IV 1 GM in SODIUM CHLORIDE 0.9% 250ML 250 ML IV SCH (15:32)
[2024-02-09] MEDS: MEROPENEM 1 GM in SODIUM CHLORIDE 0.9% 100 ML IV SCH (15:33)
[2024-02-09] MEDS: ACETAMINOPHEN 325 MG TAB PO PRN (21:56)
[2024-02-10] VITALS (10 sets, daily range): BP systolic 106–126; BP diastolic 48–64; PULSE 72–112; RESP 14–22; TEMP 98.1–99.3; O2SAT 93–99
[2024-02-10 07:03] LABS: ANION GAP 15.5 mmol/L (8-16); CALCIUM 8.1 mg/dL (8.4-10.2); CREATININE, SERUM 1.4 mg/dL (0.72-1.25); POTASSIUM 3.5 mmol/L (3.5-5.1)
[2024-02-10] MEDS: FUROSEMIDE 40 MG TAB PO SCH (09:33)
[2024-02-10] MEDS: ALLOPURINOL 100 MG TAB PO ONE (16:52)
[2024-02-10] MEDS: COLCHICINE 0.6 MG TAB PO ONE ×2 (16:52→17:37)
[2024-02-10] MEDS: TEMAZEPAM 15 MG CAP PO PRN (21:53)
[2024-02-11] VITALS (10 sets, daily range): BP systolic 107–120; BP diastolic 54–78; PULSE 74–87; RESP 16–18; TEMP 97.5–99.1; O2SAT 94–98
[2024-02-11 06:38] LABS: BASOPHILS % 0.2 % (0.0-1.0); EOSINOPHILS # (AUTO) 0.1 (0.0-0.4); EOSINOPHILS % 1.2 % (0.0-6.0); HEMATOCRIT 27.8 % (38.2-49.6); HEMOGLOBIN 8.5 g/dL (14.0-18.0); LYMPHOCYTES # (AUTO) 1.6 (1.0-3.2); LYMPHOCYTES % 18.3 % (18.0-39.1); MEAN CORPUSCULAR HEMOGLOBIN 29.6 pg (28-32); MEAN CORPUSCULAR HGB CONC 30.6 g/dL (31-35); MEAN CORPUSCULAR VOLUME 96.9 fL (81-99); MONOCYTES # (AUTO) 0.7 (0.2-0.8); MONOCYTES % 8.6 % (4.4-11.3); NEUTROPHILS % 71.3 % (38.7-80.0); PLATELET COUNT 281 x10e3/uL (140-360); RED BLOOD COUNT 2.87 x10e6/uL (4.3-5.7); RED CELL DISTRIBUTION WIDTH 16.7 % (11.7-14.4); WHITE BLOOD COUNT 8.46 x10e3/uL (4.8-10.8)
[2024-02-11 06:59] LABS: ANION GAP 13.3 mmol/L (8-16); CREATININE, SERUM 1.36 mg/dL (0.72-1.25)
[2024-02-11 07:09] LABS: POTASSIUM 3.3 mmol/L (3.5-5.1)
[2024-02-11] MEDS: ALLOPURINOL 100 MG TAB PO SCH (08:19)
[2024-02-12] VITALS (9 sets, daily range): BP systolic 105–130; BP diastolic 56–85; PULSE 73–85; RESP 18; TEMP 97.9–98.6; O2SAT 94–100
[2024-02-13] VITALS (7 sets, daily range): BP systolic 113–136; BP diastolic 56–63; PULSE 77–88; RESP 18; TEMP 97.6–99.3; O2SAT 95–100
[2024-02-13 06:16] LABS: ANION GAP 14.5 mmol/L (8-16); CREATININE, SERUM 1.23 mg/dL (0.72-1.25); POTASSIUM 3.5 mmol/L (3.5-5.1)
[2024-02-13] MEDS: IRON SUCROSE 100 MG in SODIUM CHLORIDE 0.9% 100 ML IV SCH (09:42)
[2024-02-13] MEDS: ALTEPLASE RECOMBINANT 2 MG/2 ML VIAL IV PRN (16:20)
[2024-02-14] VITALS (13 sets, daily range): BP systolic 119–147; BP diastolic 49–68; PULSE 78–88; RESP 16–20; TEMP 97.4–98.5; O2SAT 95–100
[2024-02-14] MEDS ORDERED: IOPAMIDOL 370 MG/ML 100 ML INFUS..BTL INJ ONE (11:08)
[2024-02-14] MEDS: Vancomycin IV 1 GM in SODIUM CHLORIDE 0.9% 250ML 250 ML IV SCH (16:57)
[2024-02-14] MEDS: HYDROCODONE/APAP 7.5MG-325MG 1 EA TAB PO PRN (20:14)
[2024-02-15] VITALS (8 sets, daily range): BP systolic 120–139; BP diastolic 52–95; PULSE 70–93; RESP 14–21; TEMP 97.8–98.2; O2SAT 93–98
[2024-02-15 06:28] LABS: BASOPHILS % 0.7 % (0.0-1.0); EOSINOPHILS # (AUTO) 0.2 (0.0-0.4); EOSINOPHILS % 3.3 % (0.0-6.0); HEMOGLOBIN 8.6 g/dL (14.0-18.0); LYMPHOCYTES # (AUTO) 1.1 (1.0-3.2); LYMPHOCYTES % 19.4 % (18.0-39.1); MEAN CORPUSCULAR HEMOGLOBIN 30.6 pg (28-32); MEAN CORPUSCULAR HGB CONC 31.9 g/dL (31-35); MEAN CORPUSCULAR VOLUME 96.1 fL (81-99); MONOCYTES # (AUTO) 0.5 (0.2-0.8); MONOCYTES % 8.2 % (4.4-11.3); NEUTROPHILS # (AUTO) 3.7 (2.1-6.9); PLATELET COUNT 258 x10e3/uL (140-360); RED BLOOD COUNT 2.81 x10e6/uL (4.3-5.7); RED CELL DISTRIBUTION WIDTH 15.9 % (11.7-14.4); WHITE BLOOD COUNT 5.47 x10e3/uL (4.8-10.8)
[2024-02-15 06:55] LABS: ANION GAP 13.6 mmol/L (8-16); CALCIUM 8.2 mg/dL (8.4-10.2); CREATININE, SERUM 1.08 mg/dL (0.72-1.25); POTASSIUM 3.6 mmol/L (3.5-5.1)
[2024-02-15 07:09] LABS: MAGNESIUM 1.5 MG/DL (1.3-2.1); PHOSPHORUS 3.1 MG/DL (2.3-4.7)
[2024-02-15] MEDS ORDERED: CEFEPIME HCL 1 GM VIAL ONE (08:15)
[2024-02-15] MEDS ORDERED: MAGNESIUM SULFATE 2GM/50ML IV ONE (11:15)
[2024-02-15] MEDS: MAGNESIUM SULFATE 2GM/50ML 50 ML IV ONE (13:03)
[2024-02-15] MEDS: POTASSIUM PHOSPHATE 20 MM in SODIUM CHLORIDE 0.9% 250ML 250 ML IV ONE (13:08)
[2024-02-16] VITALS (10 sets, daily range): BP systolic 125–161; BP diastolic 59–82; PULSE 66–102; RESP 12–22; TEMP 97.8–98.9; O2SAT 94–98
[2024-02-16 07:05] LABS: ANION GAP 13.1 mmol/L (8-16); CALCIUM 8.1 mg/dL (8.4-10.2); CREATININE, SERUM 1.12 mg/dL (0.72-1.25); POTASSIUM 4.1 mmol/L (3.5-5.1)
[2024-02-16 08:38] LABS: MAGNESIUM 1.9 MG/DL (1.3-2.1); PHOSPHORUS 4.1 MG/DL (2.3-4.7)
[2024-02-16] MEDS: LORAZEPAM 0.5 MG TAB PO ONE (18:32)
[2024-02-16] MEDS: Vancomycin IV 1 GM in SODIUM CHLORIDE 0.9% 250ML 250 ML IV SCH (22:19)
[2024-02-17] VITALS: BP 145/70; PULSE 89; RESP 19; TEMP 99.3; O2SAT 95
[2024-02-17 04:00] VITALS: BP 128/84; PULSE 99; RESP 17; TEMP 98.3; O2SAT 96
[2024-02-17 06:14] LABS: BASOPHILS % 0.6 % (0.0-1.0); EOSINOPHILS # (AUTO) 0.2 (0.0-0.4); EOSINOPHILS % 3.1 % (0.0-6.0); HEMATOCRIT 27.4 % (38.2-49.6); HEMOGLOBIN 8.5 g/dL (14.0-18.0); LYMPHOCYTES # (AUTO) 1.5 (1.0-3.2); LYMPHOCYTES % 22.5 % (18.0-39.1); MEAN CORPUSCULAR HEMOGLOBIN 29.7 pg (28-32); MEAN CORPUSCULAR VOLUME 95.8 fL (81-99); MONOCYTES # (AUTO) 0.6 (0.2-0.8); MONOCYTES % 8.5 % (4.4-11.3); NEUTROPHILS # (AUTO) 4.4 (2.1-6.9); PLATELET COUNT 255 x10e3/uL (140-360); RED BLOOD COUNT 2.86 x10e6/uL (4.3-5.7)
[2024-02-17 06:24] VITALS: PULSE 100; RESP 22; O2SAT 95
[2024-02-17 06:58] LABS: CALCIUM 8.5 mg/dL (8.4-10.2); CREATININE, SERUM 1.2 mg/dL (0.72-1.25)
[2024-02-17] MEDS ORDERED: SODIUM CHLORIDE 0.9% 100 ML ONE (07:57)
[2024-02-17 08:18] VITALS: BP 132/51; PULSE 85; RESP 19; TEMP 97.5; O2SAT 96
[2024-02-17] MEDS ORDERED: DOXYCYCLINE HY100 MG PO (13:28)
[2024-02-17] MEDS ORDERED: CIPRO500 MG PO (13:28)
[2024-02-17] MEDS ORDERED: tylenol #3 PO (13:40)
[2024-02-23 04:39] LABS: ABG HCO3 24 mmol/L (22-26); ABG PCO2 47 mmHg (35-45); ABG PH 7.31 (7.35-7.45); ABG PO2 186 mmHg (80-105); ABG TCO2 25
[2024-02-23 04:39] LABS: ABG HCO3 26 mmol/L (22-26); ABG PCO2 50 mmHg (35-45); ABG PH 7.33 (7.35-7.45); ABG PO2 36 mmHg (80-105); ABG TCO2 28
[2024-02-23 04:39] LABS: ABG HCO3 23 mmol/L (22-26); ABG PCO2 48 mmHg (35-45); ABG PH 7.28 (7.35-7.45); ABG PO2 243 mmHg (80-105); ABG TCO2 24
== END 2024-02-17 13:54 | disposition home or self-care (01) | DRG 656 ==
LOC: OR 09:50 → PACU V 14:52 → ICU 18:33 → MED/SURG 02-03 23:28 → MED/SURG3 02-14 17:43
PROVIDERS: ADMIT Internal Medicine; ATTEND Internal Medicine
PROC: 3E0333Z Introduction of Anti-inflammatory into Peripheral Vein, Percutaneous Approach (ICD-10-PCS; 2024-01-26)
PROC: 0T9B70Z Drainage of Bladder with Drainage Device, Via Natural or Artificial Opening (ICD-10-PCS; 2024-01-26)
PROC: 0TT00ZZ Resection of Right Kidney, Open Approach (ICD-10-PCS; 2024-01-26)
PROC: 0TT60ZZ Resection of Right Ureter, Open Approach (ICD-10-PCS; 2024-01-26)
PROC: 0T7D7ZZ Dilation of Urethra, Via Natural or Artificial Opening (ICD-10-PCS; 2024-01-26)
PROC: 30233N1 Transfusion of Nonautologous Red Blood Cells into Peripheral Vein, Percutaneous Approach (ICD-10-PCS; 2024-01-27)
PROC: 02HV33Z Insertion of Infusion Device into Superior Vena Cava, Percutaneous Approach (ICD-10-PCS; 2024-01-28)
PROC: 3E033XZ Introduction of Vasopressor into Peripheral Vein, Percutaneous Approach (ICD-10-PCS; 2024-01-28)
PROC: 5A09457 Assistance with Respiratory Ventilation, 24-96 Consecutive Hours, Continuous Positive Airway Pressure (ICD-10-PCS; 2024-01-29)
PROC: 0W9G3ZZ Drainage of Peritoneal Cavity, Percutaneous Approach (ICD-10-PCS; principal; 2024-02-12)
DX: C66.1 Malignant neoplasm of right ureter (principal); A41.9 Sepsis, unspecified organism; I50.33 Acute on chronic diastolic (congestive) heart failure; R57.8 Other shock; N17.0 Acute kidney failure with tubular necrosis; E44.0 Moderate protein-calorie malnutrition; I13.0 Hypertensive heart and chronic kidney disease with heart failure and stage 1 through stage 4 chronic kidney disease, or unspecified chronic kidney disease; E87.0 Hyperosmolality and hypernatremia; R18.8 Other ascites; K56.7 Ileus, unspecified; D62 Acute posthemorrhagic anemia; L03.311 Cellulitis of abdominal wall; N18.4 Chronic kidney disease, stage 4 (severe); E11.22 Type 2 diabetes mellitus with diabetic chronic kidney disease; R34 Anuria and oliguria; D69.6 Thrombocytopenia, unspecified; D63.1 Anemia in chronic kidney disease; I25.10 Atherosclerotic heart disease of native coronary artery without angina pectoris; N40.1 Benign prostatic hyperplasia with lower urinary tract symptoms; R35.0 Frequency of micturition; R31.0 Gross hematuria; R39.15 Urgency of urination; M10.9 Gout, unspecified; R53.81 Other malaise; E66.9 Obesity, unspecified; Z68.27 Body mass index [BMI] 27.0-27.9, adult; L76.82 Other postprocedural complications of skin and subcutaneous tissue; Y83.6 Removal of other organ (partial) (total) as the cause of abnormal reaction of the patient, or of later complication, without mention of misadventure at the time of the procedure; I25.2 Old myocardial infarction; Z95.1 Presence of aortocoronary bypass graft
CPT/HCPCS: 10160; 36415; 36569; 36600; 71045; 71046; 74018; 74176; 74178; 74470; 76770; 77012; 80048; 80053; 80202; 81001; 82550; 82570; 82805; 83735; 83880; 84100; 84156; 84300; 84550; 85025; 86850; 86900; 86920; 87070; 87205; 88307; 93005; 93306; 94660; 94799; 99252; J0330; J0690; J0692; J1100; J1200; J1580; J1644; J1756; J1940; J2001; J2150; J2185; J2270; J2405; J2470; J2543; J2765; J2997; J3475; J3480; J7030; J7050; J7070; P9016; P9047; Q9967